=== PATIENT | male | born 1945 | race Caucasian/White ===

== ENCOUNTER 2024-10-05 09:21 | Day surgery (SDC) | payer OTHER ==
[~2024-10-05] VITALS: Ht 177.8 cm; Wt 94.3 kg
[2024-10-05] VITALS (7 sets, daily range): BP systolic 120–160; BP diastolic 65–86
[~2024-10-05 09:21] MED LIST: ATOR80 PO; Aspir 8181 MG PO; CLOP75 PO; LISI20 PO; STIOLTO RESPIMAT4 G1 INH; THERA-D2000 UNIT PO
[2024-10-05] MEDS ORDERED: NS 250 ML IV ONE (10:48)
[2024-10-05] MEDS ORDERED: NS 1,000 ML IV ONE ×2 (10:48→10:51)
[2024-10-05] MEDS ORDERED: Nitroglycerin 2 MG/20 ML BTL ONE (10:48)
[2024-10-05] MEDS ORDERED: Heparin Sodium 1000 Units/ML 10ML MDV ONE ×2 (10:48→10:51)
[2024-10-05] MEDS ORDERED: Midazolam HCl 1MG / ML 2ML Vial ONE (11:11)
[2024-10-05] MEDS ORDERED: FentaNYL Citrate 50 MCG/ML 2 ML Injection ONE (11:12)
--- NOTE | 2024-10-05 13:51 | NUR ---
ARRIVED EARLIER FROM [employer], SITE INTACT, SOFT, NO ACUTE CONCERNS, NO PAIN. VSS, D/C PENDING.
--- NOTE | 2024-10-05 15:18 | NUR ---
LEG REMAINED INTACT, SITE INTACT, NO CONCERNS OR CHANGES, AMBULATED LATER TO RESTROOM AND BACK, LEG UNCHANGED WELL, IV REMOVED AND VSS, PATIENT DRESSED SELF, WAS AMBULATING IN HALLWAY AND REITERATED TO PATIENT ABOUT TAKING IT EASY FOR A COUPLE WEEKS, DISCUSSED D/C INSTRUCTIONS, F/U APPT TO BE SCHEDULED AND CALLING IF NO CALL BY TOMORROW, PATIENT STATED HAS APPT IN OCTOBER WELL, DISCUSSED MEDICATIONS RESUMED AND FEM SITE CARE INSTRUCTIONS, DENIED QUESTIONS OR CONCERNS, LEFT VIA WHEELCHAIR TO LOBBY AND DISCUSSED HE PLANS TO CALL A CAB AND STAY AT A [facility]
== END 2024-10-05 15:00 | disposition home or self-care (01) ==
LOC: MHTC 09:21
DX: E11.51 Type 2 diabetes mellitus with diabetic peripheral angiopathy without gangrene (principal); I70.203 Unspecified atherosclerosis of native arteries of extremities, bilateral legs; I10 Essential (primary) hypertension; J44.9 Chronic obstructive pulmonary disease, unspecified; E11.42 Type 2 diabetes mellitus with diabetic polyneuropathy; E78.5 Hyperlipidemia, unspecified; Z87.891 Personal history of nicotine dependence; Z88.5 Allergy status to narcotic agent; Z79.82 Long term (current) use of aspirin; Z79.899 Other long term (current) drug therapy
CPT/HCPCS: 37220; 37224; 75625; 75716; 75774; 76937; 99152; 99153; C1725; C1760; C1769; C1887; C1894; C2623; J1644; J2250; J3010; J7030; J7050; Q9967